=== PATIENT | male | born 1965 | race Two or more races ===

== ENCOUNTER 2022-10-12 04:55 | Emergency (ER) | payer OTHER ==
[~2022-10-12] VITALS: Ht 177.8 cm; Wt 99.8 kg
[2022-10-12] MEDS ORDERED: LOSARTAN POTASS50 MG (05:14)
[2022-10-12] MEDS ORDERED: TOPROL XL50 M1 (05:14)
[2022-10-12] MEDS ORDERED: CHILDREN'S ASPI81 MG (05:14)
[2022-10-12] MEDS ORDERED: SIMVASTATIN80 MG PO (05:14)
[2022-10-12] MEDS ORDERED: ZETIA10 MG PO (05:16)
[2022-10-12] MEDS ORDERED: DICLOFENAC SODI75 MG PO (09:47)
== END 2022-10-12 09:55 | disposition home or self-care (01) ==
LOC: ER 04:55
PROVIDERS: General Practice
DX: M54.59 Other low back pain (principal)